=== PATIENT | female | born 1940 | race Two or more races ===

== ENCOUNTER 2016-12-24 13:51 | Emergency (ER) | payer SELFPAY ==
[~2016-12-24] VITALS: Ht 160 cm; Wt 60.0 kg
[2016-12-24 16:46] LABS: BASOPHIL COUNT 0.1 K/uL (0-0.1); EOSINOPHIL (%) 8.7 % (0-5); EOSINOPHIL COUNT 0.9 K/uL (0-0.3); IMMATURE GRANULOCYTE (%) 0.2 % (0.0-0.7); INSTRUMENT ABS NEUTROPHIL CT 6.2 K/uL; LYMPHOCYTE COUNT 2.1 K/uL (1.0-2.8); MCHC 33.6 G/DL (30.0-36.0); MCV 89.4 FL (83-99); MEAN PLAT.VOLUME 10.2 uM^3 (9.5-12.4); MONOCYTE (%) 7.7 % (3-12); MONOCYTE COUNT 0.8 K/uL (0-0.8); NEUTROPHIL (%) 61.6 % (45-76); NEUTROPHIL COUNT 6.2 K/uL (1.8-6.4); PLATELET COUNT 256 K/uL (156-360); RBC DIS.WIDTH-CV 13.3 % (11.8-14.6); RBC DIS.WIDTH-SD 43.6 % (39-53); WHITE BLOOD COUNT 10.1 K/uL (4.1-10.2)
[2016-12-24 16:55] LABS: CHLORIDE 107 mEq/L (99-109); POTASSIUM 3.6 mEq/L (3.7-5.4); SODIUM 139 mEq/L (136-147)
[2016-12-24 16:57] LABS: GLUCOSE 122 mg/dL (70-99)
[2016-12-24 16:58] LABS: ANION GAP 10 MEQ/L (2-14)
[2016-12-24 16:59] LABS: TOTAL BILIRUBIN 0.5 mg/dL (0.0-1.0)
[2016-12-24 17:00] LABS: ALKALINE PHOSPHATASE 91 IU/L (3-129)
[2016-12-24 17:01] LABS: GFR ESTIMATE (CALCULATED) > 59 mL/min/
[2016-12-24 17:02] LABS: UREA NITROGEN (BUN) 14 mg/dL (9-23)
[2016-12-24 17:04] LABS: LIPASE 84 U/L (1.0-51.0)
[2016-12-24 17:07] LABS: TROP-I INTERPRETATION NEGATIVE; TROPONIN-I 0.05 ng/mL (0.0-0.30)
[2016-12-24 18:17] LABS: AMYLASE 96 IU/L (1-118)
[2016-12-24 19:44] LABS: ADD MIUA? YES; BILIRUBIN NEGATIVE; BLOOD NEGATIVE; COLOR YELLOW ((YELLOW)); GLUCOSE (STRIP) 50; KETONES NEGATIVE; LEUKOCYTES NEGATIVE; NITRITE NEGATIVE; PROTEIN (STRIP) NEGATIVE; SPECIFIC GRAVITY 1.009 (1.000-1.030); UROBILINOGEN 0.2 MG/DL (0.2-1.0)
[2016-12-24 19:55] LABS: BACTERIA NONE SEEN /HPF; EPITHELIAL CELLS RARE /HPF; HYALINE CASTS 0-5 /LPF; MUCUS TRACE /LPF; RED BLOOD CELLS 0-5 /HPF (0-5); WHITE BLOOD CELLS 0-5 /HPF (0-5)
[2016-12-24] MEDS ORDERED: PREDNISONE10 MG PO (21:45)
[2016-12-24 23:25] VITALS: BP 112/74
== END 2016-12-24 23:27 | disposition home or self-care (01) ==
LOC: EME 13:51
PROVIDERS: Physician Assistant
DX: M19.90 Unspecified osteoarthritis, unspecified site (principal); R53.1 Weakness; R20.0 Anesthesia of skin
CPT/HCPCS: 70450; 71020; 72100; 73522; 76705; 80053; 81003; 82150; 83690; 84484; 85025; 93005; 99281; 99284; J1100; J2405; J3010; J7040

== ENCOUNTER → 2017-02-06 | Outpatient (CLI) | payer OTHER ==
[~2017-02-06] MED LIST: PREDNISONE10 MG PO
== END | disposition home or self-care (01) ==
LOC: MRI 14:00 → RAD 14:30
DX: M48.02 Spinal stenosis, cervical region (principal); M25.78 Osteophyte, vertebrae; M50.021 Cervical disc disorder at C4-C5 level with myelopathy; M50.221 Other cervical disc displacement at C4-C5 level; M54.12 Radiculopathy, cervical region
CPT/HCPCS: 72156

== ENCOUNTER 2017-03-01 22:33 | Inpatient (IN) | payer OTHER ==
[~2017-03-01] VITALS: Ht 160 cm; Wt 68.5 kg
[~2017-03-01 22:33] MED LIST changes: +TYLENOL EXTRA500 MG PO
[2017-03-02 07:42] VITALS: BP 150/80
[2017-03-02 15:51] VITALS: BP 127/79
[2017-03-02 19:42] VITALS: BP 136/82
[2017-03-03 00:18] VITALS: BP 107/67
[2017-03-03 04:02] VITALS: BP 106/71
[2017-03-03 07:30] VITALS: BP 119/70
[2017-03-03 10:15] VITALS: BP 126/67
[2017-03-03 15:33] VITALS: BP 123/75
[2017-03-03 17:58] LABS: HEMATOCRIT 38.5 % (36.0-46.0); HEMOGLOBIN 12.8 G/DL (11.9-15.5); MCH 29.6 PG (29.0-34.0); MCHC 33.2 G/DL (30.0-36.0); MCV 89.1 FL (83-99); PLATELET COUNT 284 K/uL (156-360); RBC DIS.WIDTH-CV 12.9 % (11.8-14.6); RBC DIS.WIDTH-SD 42.4 % (39-53); RED BLOOD COUNT 4.32 M/uL (3.80-5.20); WHITE BLOOD COUNT 11.7 K/uL (4.1-10.2)
[2017-03-03 18:10] LABS: CHLORIDE 101 MEQ/L (99-109); POTASSIUM 3.2 MEQ/L (3.7-5.4); SODIUM 138 MEQ/L (136-147)
[2017-03-03 18:16] LABS: CREATININE 0.5 MG/DL (0.6-1.3); GFR ESTIMATE (CALCULATED) > 59 mL/min/; GLUCOSE 189 mg/dL (70-99); UREA NITROGEN (BUN) 6 mg/dL (9-23)
[2017-03-03 19:28] VITALS: BP 114/67
[2017-03-03 21:04] LABS: TROP-I INTERPRETATION NEGATIVE; TROPONIN-I 0.03 ng/mL (0.0-0.30)
[2017-03-03 23:47] LABS: INTER. NORMALIZED RATIO 1.2
[2017-03-03 23:49] LABS: PTT 28.8 SEC (25-37)
[2017-03-04] VITALS (24 sets, daily range): BP systolic 93–153; BP diastolic 61–102
[2017-03-04 06:45] LABS: HEMATOCRIT 35.6 % (36.0-46.0); HEMOGLOBIN 11.8 G/DL (11.9-15.5); MCH 29.8 PG (29.0-34.0); MCHC 33.1 G/DL (30.0-36.0); MCV 89.9 FL (83-99); PLATELET COUNT 260 K/uL (156-360); RBC DIS.WIDTH-CV 12.9 % (11.8-14.6); RBC DIS.WIDTH-SD 42.3 % (39-53); RED BLOOD COUNT 3.96 M/uL (3.80-5.20); WHITE BLOOD COUNT 9.8 K/uL (4.1-10.2)
[2017-03-04 08:04] LABS: CHLORIDE 102 MEQ/L (99-109); CREATININE 0.4 MG/DL (0.6-1.3); GFR ESTIMATE (CALCULATED) > 59 mL/min/; POTASSIUM 3.3 MEQ/L (3.7-5.4); SODIUM 143 MEQ/L (136-147); UREA NITROGEN (BUN) 5 mg/dL (9-23)
[2017-03-04 08:06] LABS: GLUCOSE 115 mg/dL (70-99)
[2017-03-05] VITALS (16 sets, daily range): BP systolic 109–160; BP diastolic 62–106
[2017-03-05 11:48] LABS: CHLORIDE 102 MEQ/L (99-109); CREATININE 0.3 MG/DL (0.6-1.3); GFR ESTIMATE (CALCULATED) > 59 mL/min/; GLUCOSE 132 mg/dL (70-99); POTASSIUM 3.5 MEQ/L (3.7-5.4); SODIUM 142 MEQ/L (136-147); UREA NITROGEN (BUN) 5 mg/dL (9-23)
[2017-03-06] VITALS (11 sets, daily range): BP systolic 106–155; BP diastolic 69–89
[2017-03-06 06:14] LABS: HEMATOCRIT 36.5 % (36.0-46.0); HEMOGLOBIN 12.1 G/DL (11.9-15.5); MCH 29.4 PG (29.0-34.0); MCHC 33.2 G/DL (30.0-36.0); MCV 88.6 FL (83-99); PLATELET COUNT 283 K/uL (156-360); RBC DIS.WIDTH-CV 12.7 % (11.8-14.6); RBC DIS.WIDTH-SD 40.8 % (39-53); RED BLOOD COUNT 4.12 M/uL (3.80-5.20); WHITE BLOOD COUNT 7.6 K/uL (4.1-10.2)
[2017-03-06 13:10] LABS: INTER. NORMALIZED RATIO 1.1
[2017-03-06 16:09] LABS: INTER. NORMALIZED RATIO 1.1
[2017-03-06 16:12] LABS: PTT 55.3 SEC (25-37)
[2017-03-07 01:25] LABS: INTER. NORMALIZED RATIO 1.1
[2017-03-07 01:31] LABS: PTT 86.2 SEC (25-37)
[2017-03-07 04:01] VITALS: BP 125/83
[2017-03-07 08:52] VITALS: BP 140/86
[2017-03-07 08:53] LABS: HEMATOCRIT 37.1 % (36.0-46.0); HEMOGLOBIN 12.2 G/DL (11.9-15.5); MCH 29.5 PG (29.0-34.0); MCHC 32.9 G/DL (30.0-36.0); MCV 89.6 FL (83-99); PLATELET COUNT 301 K/uL (156-360); RBC DIS.WIDTH-CV 12.4 % (11.8-14.6); RBC DIS.WIDTH-SD 40.7 % (39-53); RED BLOOD COUNT 4.14 M/uL (3.80-5.20); WHITE BLOOD COUNT 6.4 K/uL (4.1-10.2)
[2017-03-07 08:56] LABS: INTER. NORMALIZED RATIO 1.3
[2017-03-07 08:58] LABS: PTT 107.6 SEC (25-37)
[2017-03-07 10:15] LABS: CHLORIDE 98 MEQ/L (99-109); CREATININE 0.4 MG/DL (0.6-1.3); GFR ESTIMATE (CALCULATED) > 59 mL/min/; GLUCOSE 117 mg/dL (70-99); POTASSIUM 3.5 MEQ/L (3.7-5.4); SODIUM 142 MEQ/L (136-147); UREA NITROGEN (BUN) 5 mg/dL (9-23)
[2017-03-07 13:03] VITALS: BP 121/73
[2017-03-07 15:40] LABS: INTER. NORMALIZED RATIO 1.6
[2017-03-07 15:43] LABS: PTT 92.8 SEC (25-37)
[2017-03-07 16:05] VITALS: BP 122/76
[2017-03-07 19:52] VITALS: BP 120/71
[2017-03-07 22:19] LABS: INTER. NORMALIZED RATIO 1.9
[2017-03-07 22:22] LABS: PTT 86.9 SEC (25-37)
[2017-03-07 23:30] VITALS: BP 107/65
[2017-03-08 04:18] VITALS: BP 102/64
[2017-03-08 05:33] LABS: INTER. NORMALIZED RATIO 2.3
[2017-03-08 05:36] LABS: PTT 76.1 SEC (25-37)
[2017-03-08 05:37] LABS: HEMATOCRIT 36.3 % (36.0-46.0); MCH 29.8 PG (29.0-34.0); MCHC 33.1 G/DL (30.0-36.0); MCV 90.1 FL (83-99); PLATELET COUNT 304 K/uL (156-360); RBC DIS.WIDTH-CV 12.7 % (11.8-14.6); RBC DIS.WIDTH-SD 41.4 % (39-53); RED BLOOD COUNT 4.03 M/uL (3.80-5.20); WHITE BLOOD COUNT 8.1 K/uL (4.1-10.2)
[2017-03-08 07:35] VITALS: BP 156/85
[2017-03-08 12:35] VITALS: BP 119/77
[2017-03-08 17:38] VITALS: BP 128/70
[2017-03-08] MEDS ORDERED: COUMADIN1 MG PO (17:51)
[2017-03-08] MEDS ORDERED: TIZANIDINE HCL4 MG PO (17:51)
[2017-03-08] MEDS ORDERED: HYDROCODON-ACE1 EAC7 PO (17:51)
[2017-03-08 19:44] VITALS: BP 112/63
[2017-03-08 23:13] VITALS: BP 110/62
[2017-03-09 04:26] VITALS: BP 119/73
[2017-03-09 06:43] LABS: INTER. NORMALIZED RATIO 3.1
[2017-03-09 06:48] LABS: PTT 84.7 SEC (25-37)
[2017-03-09 08:21] VITALS: BP 162/76
[2017-03-09 11:55] VITALS: BP 152/72
[2017-03-09 16:10] VITALS: BP 124/63
[2017-03-09 19:56] VITALS: BP 110/70
[2017-03-10] VITALS (7 sets, daily range): BP systolic 101–142; BP diastolic 60–80
[2017-03-10 06:25] LABS: HEMATOCRIT 37.1 % (36.0-46.0); HEMOGLOBIN 12.1 G/DL (11.9-15.5); MCHC 32.6 G/DL (30.0-36.0); MCV 92.1 FL (83-99); PLATELET COUNT 327 K/uL (156-360); RBC DIS.WIDTH-SD 42.7 % (39-53); RED BLOOD COUNT 4.03 M/uL (3.80-5.20); WHITE BLOOD COUNT 7.2 K/uL (4.1-10.2)
[2017-03-10 06:33] LABS: INTER. NORMALIZED RATIO 2.1
[2017-03-10 06:47] LABS: ALBUMIN 3.2 G/DL (3.2-4.8); ALKALINE PHOSPHATASE 70 IU/L (3-129); ALT (GPT) 43 IU/L (3-49); AST (GOT) 48 IU/L (2-34); CHLORIDE 98 MEQ/L (99-109); CREATININE 0.4 MG/DL (0.6-1.3); GFR ESTIMATE (CALCULATED) > 59 mL/min/; GLUCOSE 101 mg/dL (70-99); SODIUM 135 MEQ/L (136-147); TOTAL BILIRUBIN 0.4 MG/DL (0.0-1.0); UREA NITROGEN (BUN) 9 mg/dL (9-23)
[2017-03-10 06:48] LABS: POTASSIUM 4.3 MEQ/L (3.7-5.4)
[2017-03-11 04:20] VITALS: BP 131/66
[2017-03-11 05:41] LABS: HEMATOCRIT 39.5 % (36.0-46.0); HEMOGLOBIN 12.9 G/DL (11.9-15.5); MCHC 32.7 G/DL (30.0-36.0); MCV 91.9 FL (83-99); PLATELET COUNT 367 K/uL (156-360); RBC DIS.WIDTH-SD 42.7 % (39-53); WHITE BLOOD COUNT 8.4 K/uL (4.1-10.2)
[2017-03-11 05:46] LABS: INTER. NORMALIZED RATIO 1.6
[2017-03-11 08:51] VITALS: BP 132/64
[2017-03-11 16:00] VITALS: BP 130/62
[2017-03-11 20:41] VITALS: BP 104/62
[2017-03-12 07:19] LABS: INTER. NORMALIZED RATIO 1.7
[2017-03-12 07:22] LABS: PTT 73.6 SEC (25-37)
[2017-03-12 07:58] VITALS: BP 121/68
[2017-03-12 15:16] VITALS: BP 118/72
[2017-03-12 23:37] VITALS: BP 101/58
[2017-03-13 07:01] LABS: HEMATOCRIT 40.8 % (36.0-46.0); HEMOGLOBIN 13.2 G/DL (11.9-15.5); MCH 29.9 PG (29.0-34.0); MCHC 32.4 G/DL (30.0-36.0); MCV 92.3 FL (83-99); PLATELET COUNT 391 K/uL (156-360); RBC DIS.WIDTH-CV 13.3 % (11.8-14.6); RBC DIS.WIDTH-SD 44.7 % (39-53); RED BLOOD COUNT 4.42 M/uL (3.80-5.20); WHITE BLOOD COUNT 8.3 K/uL (4.1-10.2)
[2017-03-13 07:30] LABS: INTER. NORMALIZED RATIO 2.1
[2017-03-13 07:33] LABS: PTT 87.4 SEC (25-37)
[2017-03-13 07:43] VITALS: BP 114/61
[2017-03-13 15:01] VITALS: BP 119/63
[2017-03-13 23:17] VITALS: BP 119/71
[2017-03-14 05:27] LABS: INTER. NORMALIZED RATIO 2.5
[2017-03-14 05:30] LABS: PTT 89.9 SEC (25-37)
[2017-03-14 07:58] VITALS: BP 120/72
[2017-03-14 23:37] VITALS: BP 126/66
[2017-03-15 06:41] LABS: HEMATOCRIT 39.6 % (36.0-46.0); HEMOGLOBIN 12.8 G/DL (11.9-15.5); MCH 29.5 PG (29.0-34.0); MCHC 32.3 G/DL (30.0-36.0); MCV 91.2 FL (83-99); PLATELET COUNT 409 K/uL (156-360); RBC DIS.WIDTH-CV 13.2 % (11.8-14.6); RBC DIS.WIDTH-SD 44.1 % (39-53); RED BLOOD COUNT 4.34 M/uL (3.80-5.20); WHITE BLOOD COUNT 8.2 K/uL (4.1-10.2)
[2017-03-15 06:44] LABS: PTT 39.5 SEC (25-37)
[2017-03-15 08:14] LABS: INTER. NORMALIZED RATIO 2.7
[2017-03-15 08:28] VITALS: BP 121/62
[2017-03-15 15:45] VITALS: BP 125/77
[2017-03-15] MEDS ORDERED: TRAMADOL HCL50 MG PO (16:50)
[2017-03-15] MEDS ORDERED: COUMADIN2 MG PO (16:50)
[2017-03-15 23:21] VITALS: BP 114/65
[2017-03-16 07:25] LABS: INTER. NORMALIZED RATIO 2.5
[2017-03-16 08:23] VITALS: BP 104/61
[2017-03-16 11:38] VITALS: BP 121/56
[2017-03-16 16:35] VITALS: BP 116/65
[2017-03-16 23:01] VITALS: BP 112/65
[2017-03-17 05:23] LABS: INTER. NORMALIZED RATIO 2.5
[2017-03-17 07:40] VITALS: BP 117/71
[2017-03-17 16:49] VITALS: BP 117/67
[2017-03-17 23:13] VITALS: BP 143/72
[2017-03-18 06:01] LABS: HEMATOCRIT 40.2 % (36.0-46.0); HEMOGLOBIN 13.2 G/DL (11.9-15.5); MCH 29.6 PG (29.0-34.0); MCHC 32.8 G/DL (30.0-36.0); MCV 90.1 FL (83-99); PLATELET COUNT 456 K/uL (156-360); RBC DIS.WIDTH-CV 13.2 % (11.8-14.6); RBC DIS.WIDTH-SD 43.1 % (39-53); RED BLOOD COUNT 4.46 M/uL (3.80-5.20); WHITE BLOOD COUNT 7.8 K/uL (4.1-10.2)
[2017-03-18 08:30] VITALS: BP 132/70
[2017-03-18] MEDS ORDERED: COUMADIN2 MG PO (08:35)
== END 2017-03-18 15:06 | disposition home or self-care (01) | DRG 471 ==
LOC: ENRESERV 22:33 → 4WEST 03-02 07:34 → 2SOUTH 03-02 07:34 → 3EAST 03-02 07:42 → 2SOUTH 03-02 13:44 → 3EAST 03-03 22:46 → ENRESERV 03-03 22:47 → 4WEST 03-03 23:47 → ENRESERV 03-06 10:03 → 3EAST 03-06 14:13
PROVIDERS: Hospitalist; Internal Medicine; Neurological Surgery; Surgery
DX: M50.022 Cervical disc disorder at C5-C6 level with myelopathy (principal); M50.023 Cervical disc disorder at C6-C7 level with myelopathy; M48.02 Spinal stenosis, cervical region; G82.54 Quadriplegia, C5-C7 incomplete; G95.89 Other specified diseases of spinal cord; I26.99 Other pulmonary embolism without acute cor pulmonale; D64.9 Anemia, unspecified; K56.41 Fecal impaction; E87.6 Hypokalemia; R73.9 Hyperglycemia, unspecified; M19.90 Unspecified osteoarthritis, unspecified site; M25.78 Osteophyte, vertebrae; N31.9 Neuromuscular dysfunction of bladder, unspecified; R33.9 Retention of urine, unspecified
CPT/HCPCS: 36415; 71045; 71275; 72020; 72040; 72190; 73501; 74018; 76000; 80048; 80053; 81003; 82948; 84484; 85025; 85027; 85610; 85730; 86850; 86900; 86901; 87641; 93005; 94799; 97530 GO; 97530 GP; C1713; J0131; J0690; J1100; J1170; J1580; J2370; J2405; J2710; J3010; J3480; J7120

== ENCOUNTER → 2017-04-05 | Outpatient (CLI) | payer OTHER ==
[~2017-04-05] MED LIST changes: +COUMADIN1 MG PO; +COUMADIN2 MG PO; +HYDROCODON-ACE1 EAC7 PO; +TIZANIDINE HCL4 MG PO; +TRAMADOL HCL50 MG PO
== END | disposition home or self-care (01) ==
LOC: RAD 11:26
DX: Z98.1 Arthrodesis status (principal); M50.30 Other cervical disc degeneration, unspecified cervical region
CPT/HCPCS: 72040